=== PATIENT | female | born 1965 | race African-American/Black ===

== ENCOUNTER 2019-08-28 12:17 | Emergency (ER) | payer OTHER ==
[~2019-08-28] VITALS: Ht 177.8 cm; Wt 99.8 kg
--- NOTE | ~2019-08-28 | EKG ---
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
[2019-08-28] MEDS ORDERED: NORVASC10 MG PO ×2 (12:45→13:31)
[2019-08-28] MEDS ORDERED: HYDROCHLOROTHIA25 M2 PO ×2 (12:45→13:31)
[2019-08-28 12:59] LABS: ABSOLUTE NEUTROPHILS 3.9 thou/uL (1.4-8.2); EOSINOPHILS 1.3 % (0.0-3.0); HEMATOCRIT 35.3 % (37.0-47.0); HEMOGLOBIN 11.5 gm/dL (12.0-15.0); LYMPHOCYTES 42.2 % (24.0-44.0); MCH 27.2 pg (26.0-34.0); MCHC 32.5 g/dL (28.0-37.0); MCV 83.7 fL (80.0-100.0); MONOCYTES 4.2 % (1.0-8.0); PLATELET COUNT 282 thou/uL (150-400); POLYS 51.3 % (36.0-66.0); RBC 4.21 mil/uL (4.20-5.00); RDW 16.4 % (10.5-14.5); WBC 7.6 thou/uL (4.0-11.0)
[2019-08-28 13:08] LABS: ANION GAP 8 mmol/L (7-16); BUN 13 mg/dL (7-18); CALCIUM 9.4 mg/dL (8.5-10.1); CHLORIDE 103 mmol/L (98-107); CO2 26 mmol/L (21-32); CREATININE 0.8 mg/dL (0.6-1.0); GLUCOSE 101 mg/dL (74-106); POTASSIUM 3.6 mmol/L (3.5-5.1); SODIUM 137 mmol/L (136-145)
[2019-08-28 13:17] LABS: TROPONIN-I <0.06 ng/mL (<0.06)
[2019-08-28 13:50] VITALS: BP 165/74
== END 2019-08-28 14:05 | disposition home or self-care (01) ==
LOC: ER 12:17 → EDBD 12:17 → ER 14:05
PROVIDERS: Emergency Medicine
DX: R07.9 Chest pain, unspecified (principal); I10 Essential (primary) hypertension